=== PATIENT | male | born 1995 | race American Indian/Alaskan Native ===

== ENCOUNTER 2016-11-30 13:06 | Day surgery (SDC) | payer OTHER ==
[~2016-11-30 13:06] MED LIST: ANCEF/STERILE WATER 2 GM/20 ML 2 GM/20 ML SYRINGE IV NR; ANCEF/STERILE WATER 2 GM/20 ML IV NR
[2016-11-30] MEDS ORDERED: ZOFRAN IV PRN (14:29)
[2016-11-30] MEDS ORDERED: SUBLIMAZE IV PRN (14:29)
--- NOTE | 2016-11-30 14:29 | Anesthesia Consultation ---
Anesthesia Consult and Med Hx Date of service: 11/30/16 - Airway Anesthetic Teeth Evaluation: Good (braces) ROM Head & Neck: Adequate Mental/Hyoid Distance: Adequate Mallampati Class: Class I Intubation Access Assessment: Probably Good - Pulmonary Exam CTA: Yes - Cardiac Exam Cardiac Exam: RRR - Pre-Operative Health Status ASA Pre-Surgery Classification: ASA1 Proposed Anesthetic Plan: General - Pulmonary Hx Smoking: No Hx Sleep Apnea: No (KATHERINE PRE SCREEN LOW RISK) - Cardiovascular System Hx Hypertension: No - Other Systems Hx Substance Use: Yes (MARIJUANA 2-3X PER MONTH) Hx Cancer: No
--- NOTE | 2016-11-30 14:29 | Anesthesia Day of Surgery ---
Anesthesia Day of Surgery - Day of Surgery Patient Examined: Yes Patient H&P Reviewed: Yes Patient is NPO: Yes
[2016-11-30] MEDS ORDERED: NACL BACTERIOSTATIC INFILTRATI ONE (14:31)
[2016-11-30] MEDS ORDERED: VERSED IV PRN (14:32)
[2016-11-30] MEDS ORDERED: NACL 0.9% 1000 ML 1,000 ML IV SCH (15:00)
[2016-11-30] MEDS ORDERED: PEPCID PO NR (15:00)
[2016-11-30] MEDS ORDERED: SUBLIMAZE ONE (15:58)
[2016-11-30] MEDS ORDERED: DIPRIVAN 10 MG/ML IV ONE (15:58)
[2016-11-30] MEDS ORDERED: XYLOCAINE MPF 2% ONE (15:59)
[2016-11-30] MEDS ORDERED: ZOFRAN ONE (16:11)
[2016-11-30] MEDS ORDERED: DECADRON ONE (16:11)
[2016-11-30] MEDS ORDERED: NACL 0.9% IR ONE (16:42)
[2016-11-30] MEDS ORDERED: ROBINUL ONE (16:55)
--- NOTE | 2016-11-30 17:17 | Short Stay Summary ---
Short Stay Documentation Date of service: 11/30/16 - History H&P: obtained from office - Allergies and Medications Current Medications: Allergies No Known Allergies Allergy (Verified 11/28/16 16:28) Home Medications Medication Instructions Recorded Confirmed Last Taken Type No Known Home Medications [No 11/28/16 11/28/16 Unknown History Reported Home Medications] Active Medications Famotidine (Pepcid) 20 mg PO PREOP NR Stop: 11/30/16 23:59 Last Admin: 11/30/16 14:42 Dose: 20 mg Fentanyl (Sublimaze) 50 mcg IV Q5MIN PRN PRN Reason: Pain , Severe (7-10) Stop: 11/30/16 23:59 Hydromorphone HCl (Dilaudid) 0.5 mg IV Q10MIN PRN PRN Reason: Pain , Severe (7-10) Stop: 11/30/16 23:59 Cefazolin Sodium (Ancef/Sterile Water 2 Gm/20 Ml) 2 gm in 20 mls @ 80 mls/hr IV PREOP NR PRN Reason: Protocol Stop: 11/30/16 23:01 Sodium Chloride (Nacl 0.9% 1000 Ml) 1,000 mls @ 100 mls/hr IV DIRECT RD Last Admin: 11/30/16 14:45 Dose: 100 mls/hr Midazolam HCl (Versed) 2 mg IV PREOP PRN PRN Reason: Anxiety Last Admin: 11/30/16 14:50 Dose: 2 mg - Brief post op/procedure progress note Date of procedure: 11/30/16 Pre-op diagnosis: phimosis Post-op diagnosis: same Procedure: circ Anesthesia: GETA Surgeon: NI PELLETIER Estimated blood loss: minimal Pathology: list (foreskin) Specimen disposition: to lab Condition: stable - Hospital course Hospital course: tamarco on chart - Disposition Condition at discharge: Stable Disposition: DISCHARGED TO HOME OR SELFCARE Short Stay Discharge Plan Follow up with: ADEOLA GONZALEZ MD, PHD [Primary Care Provider] - 7 Days
[2016-11-30] MEDS: DILAUDID IV PRN ×2 (17:52→18:04)
[2016-11-30] MEDS ORDERED: NORCO 5/325 PO PRN (18:30)
--- NOTE | 2016-11-30 18:31 | Post Anesthesia Evaluation ---
- Post Anesthesia Evaluation Patient Participated: Yes Airway Patent: Yes Stable Respiratory Function: Yes Temp > 96.8F: Yes Pain Manageable: Yes Adequeate Hydration: Yes Anesthesia Complications: No Block Receding Appropriately: Not Applicable
[2016-11-30] MEDS ORDERED: VERSED IV ONE (19:00)
[2016-11-30 19:27] VITALS: BP 130/60
--- NOTE | 2016-11-30 20:36 | Operative Report ---
PREOPERATIVE DIAGNOSIS: Recurrent phimosis and balanitis. POSTOPERATIVE DIAGNOSIS: Recurrent phimosis and balanitis. PROCEDURE: Circumcision. SURGEON: Jasvir Graves MD ANESTHESIA: General. ESTIMATED BLOOD LOSS: Minimal. FLUIDS: Crystalloid. COMPLICATIONS: No complications. INDICATIONS: This patient is a 21-year-old gentleman referred by Dr. Anthony Xie. He was noted to have recurrent phimosis and balanitis despite antibiotic therapy. Exam was consistent with inflammation. Risks, benefits, and complications were explained. The patient agreed to proceed with surgical intervention. DESCRIPTION OF PROCEDURE: The patient was taken to the operative suite, placed in a supine position. After adequate general anesthesia, placed in a supine position, prepped and draped in a sterile fashion. Foreskin was marked at the level of the coronal ridge. Dorsal and ventral slit was made. Foreskin was circumferentially removed and sent for routine pathologic evaluation. The shaft skin was retracted. Adequate hemostasis achieved. The proximal and distal shaft skin was reapproximated with 3-0 chromic in an interrupted fashion. Xeroform gauze was placed on the incision. Adequate hemostasis achieved. The patient tolerated the procedure well. He was extubated and taken to recovery room. He will go home on [place] and follow up in the office. JOB# [id number] AUNG/MARIIA
== END 2016-11-30 20:00 | disposition home or self-care (01) ==
LOC: OR 13:06
PROVIDERS: ATTEND Urology
DX: N47.1 Phimosis (principal); N48.1 Balanitis; F12.90 Cannabis use, unspecified, uncomplicated
CPT/HCPCS: 54161; 88304; J0690; J1100; J1170; J2250; J2405; J2704; J3010; J7030

== ENCOUNTER 2018-03-27 22:07 | Emergency (ER) | payer OTHER ==
[2018-03-27 22:31] VITALS: BP 144/75
[2018-03-27] MEDS ORDERED: MOTRIN ONE (23:00)
[2018-03-27] MEDS ORDERED: MOTRIN PO ONE (23:06)
[2018-03-28] MEDS ORDERED: ZOFRAN IV ONE (02:14)
[2018-03-28] MEDS ORDERED: DILAUDID IV ONE (02:14)
[2018-03-28] MEDS ORDERED: NACL 0.9% 1000 ML 2,000 ML IV ONE (02:14)
--- NOTE | 2018-03-28 02:23 | Emergency Department Report ---
ED ENT HPI - General Chief complaint: Sore Throat Stated complaint: SORE THROAT Time Seen by Provider: 03/28/18 02:13 Source: patient Mode of arrival: Ambulatory Limitations: No Limitations - History of Present Illness Initial comments: 23-year-old -[place] male comes to the emergency room complaining of body aches severe sore throat chills fever since Monday. Patient reports that is painful to swallow he denies any cough. Patient reports that he has not been able to eat since Monday and feels his lost about 30 pounds. Patient reports that he started vomiting today. He reports of subjective fever 99. Patient has no past medical history currently takes no medications on a daily basis and has no known drug allergies. Patient reports that his pain is a 10 out of 10 and painful to swallow. MD complaint: sore throat, difficulty swallowing -: days(s) (4) Location: throat Severity: severe Severity scale (0 -10): 10 Quality: burning, stabbing Consistency: constant Improves with: none Worsens with: swallowing Associated Symptoms: pain with swallowing, sore throat - Related Data Previous Rx's Medication Instructions Recorded Last Taken Type Ibuprofen [Motrin 600 MG tab] 600 mg PO Q8H PRN #30 tablet 03/28/18 Unknown Rx Allergies Allergy/AdvReac Type Severity Reaction Status Date / Time No Known Allergies Allergy Verified 11/28/16 16:28 ED Dental HPI - General Chief complaint: Sore Throat Stated complaint: SORE THROAT Time Seen by Provider: 03/28/18 02:13 Source: patient Mode of arrival: Ambulatory Limitations: No Limitations - Related Data Previous Rx's Medication Instructions Recorded Last Taken Type Ibuprofen [Motrin 600 MG tab] 600 mg PO Q8H PRN #30 tablet 03/28/18 Unknown Rx Allergies Allergy/AdvReac Type Severity Reaction Status Date / Time No Known Allergies Allergy Verified 11/28/16 16:28 ED Review of Systems ROS: Stated complaint: SORE THROAT Other details as noted in HPI Constitutional: chills, fever Eyes: denies: eye pain, eye discharge, vision change ENT: throat pain Respiratory: denies: cough, shortness of breath, wheezing Cardiovascular: denies: chest pain, palpitations Endocrine: no symptoms reported Gastrointestinal: nausea Genitourinary: denies: urgency, dysuria Musculoskeletal: denies: back pain, joint swelling, arthralgia Skin: denies: rash, lesions Neurological: denies: headache, weakness, paresthesias Psychiatric: denies: anxiety, depression Hematological/Lymphatic: denies: easy bleeding, easy bruising ED Past Medical Hx - Past Medical History Previous Medical History?: No Hx Hypertension: No - Surgical History Past Surgical History?: No - Social History Smoking Status: Never Smoker Substance Use Type: None - Medications Home Medications: Home Medications Medication Instructions Recorded Confirmed Last Taken Type Ibuprofen [Motrin 600 MG tab] 600 mg PO Q8H PRN #30 tablet 03/28/18 Unknown Rx ED Physical Exam - General Limitations: No Limitations General appearance: alert, in no apparent distress - Expanded ENT Exam Expanded Teeth exam: Present: other (currently has braces on) Throat exam: Positive: tonsillar erythema, tonsillomegaly, tonsillar exudate - Neck Neck exam: Present: tenderness, lymphadenopathy ED Course Vital Signs 03/27/18 22:22 Temperature 99.0 F Pulse Rate 100 H Respiratory 20 Rate Blood Pressure 144/75 O2 Sat by Pulse 98 Oximetry ED Medical Decision Making - Medical Decision Making Patient has been evaluated by this provider in fast track. Patient had ibuprofen in triage. Patient appears to be very uncomfortable sick. IV, normal saline 2 L, Zofran, 0.5 of Dilaudid. In 2.5 million units of penicillin ordered. Critical care attestation.: If time is entered above; I have spent that time in minutes in the direct care of this critically ill patient, excluding procedure time. ED Disposition Clinical Impression: Pharyngitis Qualifiers: Pharyngitis/tonsillitis etiology: unspecified etiology Qualified Code(s): J02.9 - Acute pharyngitis, unspecified Disposition: DC-01 TO HOME OR SELFCARE Is pt being admited?: No Does the pt Need Aspirin: No Condition: Stable Instructions: Pharyngitis (ED) Additional Instructions: Take Motrin for pain. If symptoms persist or gets worse please follow up with her primary care provider Prescriptions: Ibuprofen [Motrin 600 MG tab] 600 mg PO Q8H PRN #30 tablet PRN Reason: Pain Referrals: PRIMARY CARE, [Primary Care Provider] - 3-5 Days [facility] [Provider Group] - 3-5 Days Forms: Work/School Release Form(ED)
[2018-03-28] MEDS ORDERED: PFIZERPEN 2.5 MIL.UNITS in NACL 0.9% 50 ML IV ONE (02:30)
== END 2018-03-28 04:40 | disposition home or self-care (01) ==
LOC: ED 22:07
DX: J02.9 Acute pharyngitis, unspecified (principal); M79.1 Myalgia; R11.11 Vomiting without nausea
CPT/HCPCS: 87116; 87430; 96361; 96365; 96375; 99283; J1170; J2405; J2540; J7030

== ENCOUNTER 2018-12-23 00:39 | Emergency (ER) | payer SELFPAY ==
[2018-12-23 01:40] VITALS: BP 120/47
[2018-12-23] MEDS ORDERED: ZITHROMAX PO STA (02:49)
[2018-12-23] MEDS ORDERED: XYLOCAINE 1% MPF 5 mL INFILTRATI ONE (02:49)
[2018-12-23] MEDS ORDERED: ROCEPHIN IM STA (02:49)
--- NOTE | 2018-12-23 03:00 | Emergency Department Report ---
ED Male HPI - General Chief complaint: Urogenital-Male Stated complaint: STD Time Seen by Provider: 12/23/18 02:08 Source: patient Mode of arrival: Ambulatory Limitations: No Limitations - History of Present Illness MD Complaint: penile discharge (4. Timoptic 6 and is evidently began to develop penile burning, dysuria, discharge, and on for the last 2 weeks presents most department for further evaluation as he has found that his sexual partner has been diagnosed with an STD.), dysuria -: Sudden Location: penis Radiation: none Severity: mild Quality: burning Consistency: constant Worsens with: urination denies other symptoms - Related Data Previous Rx's Medication Instructions Recorded Last Taken Type Ibuprofen [Motrin 600 MG tab] 600 mg PO Q8H PRN #30 tablet 03/28/18 Unknown Rx metroNIDAZOLE [Flagyl] 2,000 mg PO ONCE #4 tablet 12/23/18 Unknown Rx Allergies Allergy/AdvReac Type Severity Reaction Status Date / Time No Known Allergies Allergy Verified 11/28/16 16:28 ED Review of Systems ROS: Stated complaint: STD Other details as noted in HPI Constitutional: denies: chills, fever Eyes: denies: eye pain, eye discharge, vision change ENT: denies: ear pain, throat pain Respiratory: denies: cough, shortness of breath, wheezing Cardiovascular: denies: chest pain, palpitations Endocrine: no symptoms reported Gastrointestinal: denies: abdominal pain, nausea, diarrhea Genitourinary: denies: urgency, dysuria Musculoskeletal: denies: back pain, joint swelling, arthralgia Skin: denies: rash, lesions Neurological: denies: headache, weakness, paresthesias Psychiatric: denies: anxiety, depression Hematological/Lymphatic: denies: easy bleeding, easy bruising ED Past Medical Hx - Past Medical History Previous Medical History?: No Hx Hypertension: No - Surgical History Past Surgical History?: No - Social History Smoking Status: Never Smoker - Medications Home Medications: Home Medications Medication Instructions Recorded Confirmed Last Taken Type Ibuprofen [Motrin 600 MG tab] 600 mg PO Q8H PRN #30 tablet 03/28/18 Unknown Rx metroNIDAZOLE [Flagyl] 2,000 mg PO ONCE #4 tablet 12/23/18 Unknown Rx ED Physical Exam - General Limitations: No Limitations General appearance: alert, in no apparent distress - Head Head exam: Present: atraumatic, normocephalic - Eye Eye exam: Present: normal appearance, PERRL, EOMI. Absent: scleral icterus, conjunctival injection Pupils: Present: normal accommodation - ENT ENT exam: Present: normal exam, normal orophraynx, mucous membranes moist - Neck Neck exam: Present: normal inspection, full ROM - Respiratory Respiratory exam: Present: normal lung sounds bilaterally. Absent: respiratory distress, wheezes, rales, chest wall tenderness, accessory muscle use - Cardiovascular Cardiovascular Exam: Present: regular rate, normal rhythm. Absent: bradycardia, systolic murmur, diastolic murmur, rubs, gallop - GI/Abdominal GI/Abdominal exam: Present: soft, normal bowel sounds. Absent: tenderness, other - Rectal Rectal exam: Present: deferred - Extremities Exam Extremities exam: Present: normal inspection - Back Exam Back exam: Present: normal inspection - Neurological Exam Neurological exam: Present: alert, oriented X3 - Psychiatric Psychiatric exam: Present: normal affect, normal mood - Skin Skin exam: Present: warm, dry, intact, normal color. Absent: rash ED Course Vital Signs 12/23/18 12/23/18 00:46 01:46 Temperature 98.4 F 98.4 F Pulse Rate 63 65 Respiratory 18 18 Rate Blood Pressure 120/47 120/47 O2 Sat by Pulse 100 99 Oximetry ED Medical Decision Making - Medical Decision Making 6 therefore evaluated. His urinalysis and GC will still cover him for gonorrhea and chlamydia. Critical care attestation.: If time is entered above; I have spent that time in minutes in the direct care of this critically ill patient, excluding procedure time. ED Disposition Clinical Impression: Dysuria, STD (sexually transmitted disease) Disposition: - TO HOME OR SELFCARE Is pt being admited?: No Does the pt Need Aspirin: No Condition: Stable Instructions: Safe Sex (ED), Sexually Transmitted Diseases (ED), Chlamydia Infection (ED) Prescriptions: metroNIDAZOLE [Flagyl] 2,000 mg PO ONCE #4 tablet Referrals: ADEOLA GONZALEZ MD, PHD [Primary Care Provider] - 3-5 Days
[2018-12-23 03:30] LABS: Bilirubin,Urine NEG (Negative); Blood,Urine NEG (Negative); Color,Urine Yellow (Yellow); Mucus,Urine FEW /HPF; Protein,Urine <15 mg/dL mg/dL (Negative); Urobilinogen,Urine < 2.0 mg/dL (<2.0)
== END 2018-12-23 03:47 | disposition home or self-care (01) ==
LOC: ED 00:39
DX: A64 Unspecified sexually transmitted disease (principal); R30.0 Dysuria
CPT/HCPCS: 81001; 87591; 96372; 99283; J0696